=== PATIENT | male | born 1965 | race Caucasian/White ===

== ENCOUNTER → 2016-05-26 | Outpatient (CLI) | payer OTHER ==
[~2016-05-26] MED LIST: DULOXETINE HCL60 MG; GLUCOPHAGE500 MG PO; HUMALOG100 U/ML; LEVEMIR100 UNITS/; LYRICA PO; NORCO 10-325 TA1 TAB; ONGLYZA5 MG; PRAVACHOL20 MG; SYNTHROID125
== END | disposition home or self-care (01) ==
LOC: CBAR 09:25
DX: Z01.812 Encounter for preprocedural laboratory examination (principal); E66.01 Morbid (severe) obesity due to excess calories
CPT/HCPCS: 36415; 84443; 86677; G0463